=== PATIENT | male | born 1930 | race African-American/Black ===

== ENCOUNTER 2016-08-31 10:09 | Inpatient (IN) | payer OTHER ==
[2016-08-31] VITALS (24 sets, daily range): BP systolic 35–144; BP diastolic 25–83
[~2016-08-31] VITALS: Ht 172.7 cm; Wt 79.4 kg
--- NOTE | ~2016-08-31 | EKG ---
[address] [place] [address] ELECTROCARDIOGRAM REPORT Name: JD ABAD Room #: 251-P [facility] IN M.R.#: [id number] Admission: 08/31/16 Attend Phys: Sharan Holbrook MD Discharge: 08/31/16 Date of : 32 Report #: [id number] THIS REPORT FOR: //name// [facility] Test Date: 2016-08-31 Test Time: 14:11:10 Pat Name: JD ABAD Department: Room: 251 Gender: M National Account Executive: Timothy PIERRE : 1930 Requested By: Isaiah Helms Order Number: [id number] MD: Ubaldo Guerra Measurements Intervals [place] Rate: 69 P: 55 NC: 185 QRS: -70 QRSD: 184 T: 79 QT: 436 QTc: 467 Interpretive Statements Sinus rhythm Right bundle branch block Inferior infarct, old Compared to ECG 08/31/2016 11:03:36 No significant changes Electronically Signed On 09-02-2016 14:02:56 PATTERN CLERK by Ubaldo Guerra [email or web address] <ELECTRONICALLY SIGNED> By: Ubaldo Guerra MD, [facility] 09/02/16 1402 1411 141 Ubaldo Guerra MD, [facility] /EPI
--- NOTE | ~2016-08-31 | HC ---
[facility] [place] [address] CONSULTATION Name: JD ABAD Room #: 251-P [facility] IN M.R.#: [id number] Admission: 08/31/16 Attend Phys: Sharan Holbrook MD Discharge: 08/31/16 Date of : 32 Report #: [id number] THIS REPORT FOR: //name// CC: Sharan Wilson PRIMARY CARE PHYSICIAN: Luis Wilson M.D. REFERRAL PHYSICIAN: Dr. Sharan Holbrook. REASON FOR REFERRAL: Acute respiratory failure. HISTORY OF PRESENT ILLNESS: The patient is an 86-year-old -[place] male who was brought to the emergency room with unresponsive state. A pulmonary critical care consultation was requested. The patient has had a relative decline in his health over the past 6 months. He has been hospitalized at least on 4 occasions since April of this year. His last hospital stay was in 07/2016 for a suspected urinary tract infection and sepsis. It appears to have started from when he was diagnosed with a stroke about a year ago. According to the family, his health has been declining for the last 6 months with progressive weakness. For the past few weeks, he has been bedridden. In fact, he has also developed a decubitus ulcer. The patient has heart disease along with ischemic cardiomyopathy, diabetes mellitus type 2, hypotension and chronic kidney disease. When he was seen in the emergency room, he was found to be hypoxic and hypotensive. The patient coded at least on 3 occasions in the ER and then 2 more times in the ICU. Each time he would get hypotensive and bradycardic. He responds to epinephrine. At present, he is on multiple vasopressors. Despite this, his blood pressure would keep trending downward requiring epinephrine boluses. He is profoundly hypoxic with a PaO2 of only 59 on FiO2 of 100%. He has also been developing progressive acidosis. He is also anuric at this time. PAST MEDICAL HISTORY: As mentioned above, coronary artery disease with ischemic cardiomyopathy, past history of myocardial infarction, history of CVA with progressive weakness and debility, diabetes mellitus type 2, hypertension, chronic kidney disease, decubitus ulcer involving his coccyx and his feet along with Alzheimer dementia. The patient also has an apparent history of sleep apnea, unclear whether he has been on CPAP, peripheral vascular disease. ALLERGIES: PENICILLIN, WHICH CAUSES SWELLING. [facility] [address] [place] [address] CONSULTATION Name: JD ABAD Room #: 251-P [facility] IN M.R.#: [id number] Admission: 08/31/16 Attend Phys: Sharan Holbrook MD Discharge: 08/31/16 Date of : 32 Report #: [id number] HOME MEDICATIONS: Include Zyrtec, Flonase, linagliptin, amiodarone, amlodipine, diltiazem and Flomax. FAMILY HISTORY: Noncontributory. SOCIAL HISTORY: The patient is and lives with his . There is no history of tobacco or alcohol use. REVIEW OF SYSTEMS: As mentioned above, the patient has been rather sedentary for the past 6 months with progressive weakness and debility. PHYSICAL EXAMINATION: GENERAL: Obtunded. VITAL SIGNS: Temperature has been very labile with blood pressure as low as 40 mmHg systolic, currently it is 100 mmHg systolic; pulse is 85, respiratory rate is 14, saturation 90%. HEENT: Normocephalic, atraumatic. He is orally intubated. NECK: Supple, without lymphadenopathy or thyromegaly. CHEST: Breath sounds are coarse bilaterally without rales or wheezes. CARDIOVASCULAR: Normal S1, S2. No murmurs or gallop. There is no JVD. There is no carotid bruit. Pulses are markedly reduced bilaterally. ABDOMEN: Soft, nontender, no organomegaly or masses felt. EXTREMITIES: No cyanosis or clubbing, it is cool to touch. MUSCULOSKELETAL: Remarkable for moderate muscle atrophy. LABORATORY DATA: Chest x-ray shows dense right lower lobe infiltrates. CT of the head was unremarkable for any acute intracranial hemorrhage or processes. Echocardiogram revealed ejection fraction of 30-35%, akinesis involving the apical septal, apical lateral and apical myocardium, no overt valvular heart disease, pulmonary pressure measured 36 mmHg. Sodium 156, potassium 5.2, chloride of 116, CO2 is 22, BUN is 102, creatinine is 10.0, liver function test is moderately abnormal. WBC is 12,800; hemoglobin 7.7. Albumin of 1.5, calcium of 7.7. Arterial blood gas revealed pH 7.21, pCO2 of 43, pO2 of 71 on FiO2 100%. IMPRESSION: 1. Cardiopulmonary arrest in this 86-year-old -[place] male due to presumed profound septic shock due to aspiration pneumonia, extracellular volume depletion. 2. Aspiration pneumonia. 3. Acute kidney injury/chronic kidney disease. 4. Worsening metabolic acidosis. 5. Shock liver. 6. Profound protein calorie malnutrition. 7. Encephalopathy, probable hypoxic brain injury. [facility] [address] [place] [address] CONSULTATION Name: JD ABAD Room #: 251-P [facility] IN Marlena.#: [id number] Admission: 08/31/16 Attend Phys: Sharan Holbrook MD Discharge: 08/31/16 Date of : 32 Report #: [id number] 8. Coronary artery disease with ischemic cardiomyopathy. 9. Diabetes mellitus type 2. 10. Hypertension. 11. Progressive debility and weakness following a cerebrovascular accident over the past year. RECOMMENDATION AND DISCUSSION: The patient has coded at least 6 times since 10:00 this morning. He becomes progressively hypotensive. He is also developing worsening acidosis. He is anuric. He was profoundly hypoxic on FiO2 of 100%. Overall, prognosis is very grim. There is no meaningful hope for recovery. Further care is felt to be futile. I had a long discussion with the patient's family including , daughter and son-in-law. They voice understanding. After some contemplation, they have decided to be DNR. We will continue current treatment, but would not add any additional therapy including cardioversion, additional medication or blood products, etc. Should the patient's condition deteriorate, then we will make him comfort care. The family voices understanding and is in agreement. Thank you for this consultation. <ELECTRONICALLY SIGNED> By: Isaiah Helms MD 09/07/16 1634 1629 0041 Isaiah Helms MD /nt
--- NOTE | ~2016-08-31 | P ---
[facility] [place] [address] PROCEDURE REPORT Name: JD ABAD Room #: 251-P [facility] IN M.R.#: [id number] Admission: 08/31/16 Attend Phys: Sharan Holbrook MD Discharge: 08/31/16 Date of : 32 Report #: [id number] THIS REPORT FOR: //name// CC: Sharan Wilson DATE OF SERVICE: 08/31/2016 PROCEDURE: Right subclavian triple-lumen catheter insertion. INDICATION: Need for central venous access, ____ patient on multiple medications. PROCEDURE NOTATION: The patient was sedated on mechanical ventilator after cardiopulmonary arrest. I discussed with , who was at the bedside. They agreed for us to proceed; emergent procedure performed. A 2% chlorhexidine gluconate cleansed the surface of the right subclavian area using full barrier method including head gown, mask, gloves and full body eye sheet was performed. No topical lidocaine was instilled. Using the introducer needle, using an infraclavicular approach, the subclavian was accessed on the second attempt. J wire was initially not easily passed; however, with some turning of the bevel of the needle distally, the J wire was easily advanced into good position. Needle was removed. A small dermotomy was made followed by dilator over the J wire and then the dilator was removed and triple lumen was advanced over the J wire into good position using Seldinger technique. Sutured in place at 18 cm at the skin surface. Biopatch put in place and dressing put in place. All lines flushed and aspirated easily. Chest x-ray confirmed good positioning. No pneumothorax. <ELECTRONICALLY SIGNED> By: Derek Sanz MD 09/10/16 0903 1644 2353 Derek Sanz MD /nt
--- NOTE | ~2016-08-31 | EKG ---
[address] [address] ELECTROCARDIOGRAM REPORT Name: JD ABAD Room #: 251-P [facility] IN M.R.#: [id number] Admission: 08/31/16 Attend Phys: Sharan Holbrook MD Discharge: Date of : 32 Report #: [id number] THIS REPORT FOR: //name// [facility] ED Test Date: 2016-08-31 Test Time: 11:03:36 Pat Name: JD ABAD Department: Room: [facility] Gender: M Revenue Accounting Manager: Unruly CONTI : 1930 Requested By: Hilaroi William Order Number: [id number] MD: Ethan Marrero Measurements Intervals [place] Rate: 88 P: 48 UT: 153 QRS: -61 QRSD: 166 T: 62 QT: 471 QTc: 570 Interpretive Statements Sinus rhythm Right bundle branch block Compared to ECG 08/20/2016 06:58:51 Electronically Signed On 08-31-2016 14:20:25 HATCHERY ATTENDANT by Ethan Marrero [email or web address] <ELECTRONICALLY SIGNED> By: Ethan Marrero MD 08/31/16 1420 02 02 Ethan Marrero MD /ESAU
--- NOTE | ~2016-08-31 | 2DMMODE ---
[facility] [place] [address] 2 D/M-MODE ECHOCARDIOGRAM Name: JD ABAD Room #: 251-P [facility] IN M.R.#: [id number] Admission: 08/31/16 Attend Phys: Timothy Galarza Discharge: Date of : 32 Date of Service: 08/31/16 1439 Report #: [id number] THIS REPORT FOR: //name// Transthoracic Echocardiography Ordering physician: Isaiah Helms Referring physician: Isaiah Helms Steven E. Cloth Colorer: KATHRYN Jeff Indications/History: Limited echoduring codein ICU. BP: HR: Height: 68in Weight: 175lb Study data: M-mode, limited 2D, limited spectral Doppler, and color Doppler. Location: Bedside. STAT. Image quality was adequate. 2D measurements Normal Normal LVID ED 36-57 IVS ED 6-11 LVID ES 23-40 LVPW ED 6-11 LA volume index 16-28 AoRoot diam ED 21-37 LVOT diameter 18-23 Findings: Left ventricle: The cavity size was normal. Wall thickness was normal. Systolic function was moderately to severely reduced. The estimated ejection fraction was in the range of 30% to 35%. Regional wall motion abnormalities: Akinesis of the apical septal, apical lateral, and apical myocardium. Right ventricle: The cavity size was at the upper limits of normal. Systolic function was normal. Right atrium: The atrium was normal in size. Left atrium: The atrium was mildly dilated. Aortic valve: Structurally normal valve. Doppler: There was no stenosis. Mitral valve: Structurally normal valve. Doppler: There was no evidence for stenosis. Tricuspid valve: Structurally normal valve. Doppler: There was no evidence for stenosis. Mild regurgitation. [address] [address] 2 D/M-MODE ECHOCARDIOGRAM Name: JD ABAD Room #: 251-P [facility] IN M.R.#: [id number] Admission: 08/31/16 Attend Phys: Sharan PitoShania Romanoma Timothy Discharge: Date of : 32 Date of Service: 08/31/16 1439 Report #: [id number] Regurgitant peak velocity: 254.8cm/s. Peak RV-RA gradient: 26mm Hg (S). Pulmonic valve: Structurally normal valve. Doppler: There was no evidence for stenosis. Pericardium: There was no pericardial effusion. Aorta: Aortic root: The aortic root was normal in size. Pulmonary artery: Systolic pressure was estimated to be 36mm Hg. Systemic veins: Inferior vena cava: The vessel was normal in size; the respirophasic diameter changes were blunted (< 50%). Conclusions 1. Left ventricle: The cavity size was normal. Wall thickness was normal. Systolic function was moderately to severely reduced. The estimated ejection fraction was in the range of 30% to 35%. 2. Regional wall motion abnormality: Akinesis of the apical septal, apical lateral, and apical myocardium. 3. Aortic valve: Structurally normal valve. 4. Mitral valve: Structurally normal valve. 5. Tricuspid valve: Structurally normal valve. Mild regurgitation. 6. Pulmonary arteries: Systolic pressure was estimated to be 36mm Hg. <ELECTRONICALLY SIGNED> By: Sacha Farris MD 08/31/16 1536 1439 1536 Sacha Farris MD /alexandro
--- NOTE | ~2016-08-31 | HC ---
[facility] [place] [address] CONSULTATION Name: JD ABAD Room #: 251-P [facility] IN M.R.#: [id number] Admission: 08/31/16 Attend Phys: Sharan Holbrook MD Discharge: 08/31/16 Date of : 32 Report #: [id number] THIS REPORT FOR: //name// CC: Sharan Wilson DATE OF SERVICE: 08/31/2016 REASON FOR CONSULTATION: Shock with acute kidney injury. HISTORY OF PRESENT ILLNESS: This is an 86-year-old male who has been in and out of [facility] multiple times since April of this year. At that time, he suffered a CVA. We have seen him in consultation on multiple of these hospitalizations. He has been very weak since his stroke. He has had difficulty with eating and swallowing. He was just discharged to home 8 days ago. He has had multiple episodes of acute kidney injury with creatinine levels that have risen up to the range of 4-5. Each time with volume replacement, creatinine tends to get better back down to his baseline creatinine in the 1.5-2 range. Upon discharge on 08/23/2016, his creatinine level was 2.9. Upon presentation today, his creatinine is 10.4. I have had a chance to talk to his . She has been caring for him at home. She has a home health nurse who is coming in and helping her on a daily basis. The patient has had difficulty eating. She is feeding him pureed food, but he is still having problems swallowing that. Fluid intake has been minimal. Urine output has been minimal. Today, he was more hypoxemic and having trouble breathing. EMS was called, he was brought to the Emergency Room and has reportedly coded several times requiring resuscitation. He is seen at this time in the Intensive Care Unit. He has been intubated. He is on the ventilator. He has gotten 3 liters of saline IV. He is on 3 different pressors. He is unresponsive and unable to provide any history; additional history is through his . PAST MEDICAL HISTORY: He had a CVA in 04/2016 that resulted in some left hemiparesis. He has been doing poorly ever since that time. He has chronic kidney disease stage III or stage IV. He has had multiple episodes of acute kidney injury. He has had longstanding hypertension and diabetes. He has a history of coronary artery disease, previous NE, previous percutaneous coronary interventions. He has chronic dementia. Previously, he had some obstructive sleep apnea. MEDICATIONS: As provided by his include hydrocodone for pain, several different eye drops, meclizine 25 mg t.i.d., vitamin D3 1000 units daily, tamsulosin 0.4 mg daily, fluticasone inhaler, carvedilol 12.5 mg b.i.d., aspirin 81 mg daily, omeprazole 20 mg daily, simvastatin 40 mg daily, primidone 100 mg b.i.d., finasteride 5 mg daily, gabapentin 600 mg b.i.d., Tradjenta 5 mg daily, [address] [address] CONSULTATION Name: JD ABAD Room #: 251-P [facility] IN M.R.#: [id number] Admission: 08/31/16 Attend Phys: Sharan Holbrook MD Discharge: 08/31/16 Date of : 32 Report #: [id number] glipizide 5 mg b.i.d., amiodarone down to 200 mg once daily, diltiazem 240 mg daily and amlodipine 5 mg daily. ALLERGIES: PENICILLIN. FAMILY HISTORY: Noncontributory. SOCIAL HISTORY: The patient is . He and his live in [place]. It has been a difficult situation because in spite of medical recommendations that he be placed in a Care Center, the has refused do that and wanted to care for him at home, but this has resulted in recurring hospitalizations on a frequent basis recently. REVIEW OF SYSTEMS: The says that they have been trying to feed him pureed food. He still has some difficulty swallowing. Little intake of fluids. He has had some cough. She is unaware of fevers, chills or sweats. She says urine output has been reduced. She is unaware of vomiting, unaware of diarrhea. They have been providing basically total care for him. PHYSICAL EXAMINATION: GENERAL: Severely ill-appearing male seen in the Intensive Care Unit. VITAL SIGNS: Blood pressure about 60 systolic, heart rate is in the 80s. He is intubated. HEENT: Pupils are 3 mm on the left, 4 mm on the right, sluggish. Sclerae are nonicteric. CHEST: Shows markedly diminished breath sounds going to the right lung, generally coarse. HEART: Has distant heart tones. ABDOMEN: Soft, no bowel sounds, it is not distended. No organomegaly or are palpable. EXTREMITIES: Show diffuse severe atrophy and generally decreased skin turgor consistent with volume depletion. Chest x-ray is reviewed and shows a right lower lobe infiltrate with volume loss on the right lung. LABORATORY DATA: On admission to the Emergency Room; sodium 155, potassium 5.2, chloride 116, bicarbonate 22, BUN 102, creatinine 10.4, glucose 313, AST 106, ALT 35, calcium 8.6, total protein 6.2, albumin 1.9. Troponin 2.38. INR 1.3. White count 10.8, hemoglobin 8.6, hematocrit 26.1, platelets 138,000. Differential on the white count is 86 segs, 10 lymphs, 4 monos. Urinalysis not yet available. Blood gas; pH 7.22, pCO2 44, pO2 72. Lactate on that is 5.49. ASSESSMENT: 1. Shock post-codes. He has had multiple resuscitations. He is dramatically volume deplete. He is on multiple pressors. He needs extensive volume [facility] [address] [place] [address] CONSULTATION Name: JD ABAD Room #: 251-P [facility] IN M.R.#: [id number] Admission: 08/31/16 Attend Phys: Sharan Holbrook MD Discharge: 08/31/16 Date of : 32 Report #: [id number] resuscitation. We have ordered two additional liters at this time to run in stat. He will need further volume after that, we will continue the pressors as needed. 2. Respiratory failure requiring mechanical ventilation. 3. Acute kidney injury. This is on top of chronic kidney disease. With his creatinine of 2.5, 8 days ago and now his creatinine of 10, he has been having progressive renal failure ever since he was discharged to home. I am sure a large part of this was like a volume intake and this had been suspected based upon prior hospital notes during his recent hospitalizations. Again, this is contributing to his very poor renal perfusion. 4. Chronic kidney disease stage 4. 5. Hypertension, longstanding. Obviously not a problem at this point, but he has been on multiple antihypertensive medications, all of which may be contributing. 6. Hypernatremia. Again, he has been free water deficient with his poor oral intake. I am sure his sodium my go up more with his normal saline resuscitation and we will at some point need to switch him to hypotonic IV fluids. 7. Hyperkalemia, mild. This will correct with volume replacement. 8. Coronary artery disease, previous PCI. 9. Pneumonia, right lower lobe. Broad spectrum antibiotics. He has just been in the hospital multiple times, so we will need coverage for potential hospital-acquired pneumonia. 10. Cerebrovascular accident in April, this has left him very limited. Included in that, he has been on a pureed diet, but still not taking much. 11. Anemia, progressive. 12. I had a conversation with the patient's . The patient is critically ill and very unstable. He may not survive this episode. We will give him aggressive volume replacement. He will be getting mechanical ventilation, antibiotics, fluid resuscitation, pressors and intensive care. Obviously, the home situation is an untenable one. We are far from making decisions going forward until we see if he will stabilize with our aggressive care. <ELECTRONICALLY SIGNED> By: John Clifford MD 09/03/16 0738 1319 2139 John Clifford MD /nt
--- NOTE | ~2016-08-31 | DEA ---
[facility] [place] [address] SUMMARY Name: JD ABAD Room #: 251-P [facility] IN M.R.#: [id number] Admission: 08/31/16 Attend Phys: Sharan Holbrook MD Discharge: 08/31/16 Date of : 32 Report #: [id number] THIS REPORT FOR: //name// CC: Sharan Wilson DATE OF SERVICE: 08/31/2016 In briefly, this patient is an 86-year-old male who was brought in to the Emergency Room unresponsive. ER record reviewed. EMS received a call, his stating that the patient was not acting right and become unresponsive. They brought him in the ER, the patient was coded. ACLS protocols were used. The patient was intubated, started on the pressors and paralyzed and then, he at least coded twice in the ER and he had a sepsis pneumonia and basically, his septic shock, hypernatremia, acute renal failure, diabetic acidosis and he was transferred to the ICU. Pulmonary, Infectious Disease and all have been involved. The patient aggressively was resuscitated and treated. Overall, prognosis was poor. Finally, the family had decided to make him a DNR. The patient on the same day of admission later this evening. Please see the notes in the chart for further details. The last note for Dr. Schmidt was on 06:25 and the patient was pronounced at 06:25 thus according to the note. <ELECTRONICALLY SIGNED> By: Sharan Holbrook MD 09/12/16 1354 1311 1409 Sharan Holbrook MD /nt
[~2016-08-31 10:09] MED LIST: ANTIVERT25 MG PO; ASPIR 8181 MG PO; CARDIZEM CD240 MG PO; CARVEDILOL12.5 MG PO; CETIRIZINE HCL5 MG PO; COZAAR 50 MG TA50 M2 PO; DUONEB 2.5-0.5 M3 ML INH; FLOMAX0.4 MG PO; FLONASE 0.05%50 MCG NASAL; GLIPIZIDE 10 MG10 MG PO; HYDRALAZINE 2525 MG PO; HYDROCODONE-AP1 EAC6 PO; LASIX 20 MG TAB20 MG PO; LEVAQUIN 500 M500 M9 PO; LOSARTAN POTAS100 MG PO; MYRBETRIQ25 MG PO; MYSOLINE50 MG PO; NEURONTIN600 MG PO; NITROFURANTOIN100 MG PO; NORVASC5 MG PO; OMEPRAZOLE20 M1 PO; OTHER MISCELL; PACERONE 200 M200 M1 PO; PACERONE 200 M200 MG PO; PROSCAR 5MG TABL5 MG PO; SIMVASTATIN40 MG PO; TIMOLOL GL0.5 %/5 ML OP; TIMOLOL MA0.5 %/5 M2 OPHTHALMIC; TRADJENTA5 MG PO; TRAVATAN Z2.5 ML OPHTHALMIC; TRUSOPT5 ML OP; VITAMIN D1000 UNI1 PO
[2016-08-31 10:42] LABS: ABSOLUTE NEUTROPHILS 9.3 thou/uL (1.4-8.2); BASOPHILS 0.4 % (0.0-2.0); HEMATOCRIT 26.1 % (42.0-52.0); HEMOGLOBIN 8.6 gm/dL (14.0-18.0); MCHC 33.1 % (28.0-37.0); MCV 90.8 fL (80.0-100.0); MONOCYTES 3.9 % (1.0-8.0); POLYS 85.7 % (36.0-66.0); RBC 2.87 mil/uL (4.50-6.00); RDW 16.4 % (10.5-14.5); WBC 10.8 thou/uL (4.0-11.0)
[2016-08-31 10:44] LABS: MANUAL DIFF NO
[2016-08-31 10:48] LABS: CALCIUM 8.6 mg/dL (8.5-10.1); CREATININE 10.4 mg/dL (0.6-1.3); POTASSIUM 5.2 mmol/L (3.5-5.1)
[2016-08-31 10:58] LABS: ALBUMIN 1.9 g/dL (3.4-5.0); TOTAL BILIRUBIN 0.3 mg/dL (<0.1-1.0); TOTAL PROTEIN 6.2 g/dL (6.4-8.2)
[2016-08-31 10:59] LABS: INR 1.3; PROTIME 13.1 Seconds (9.3-11.4)
[2016-08-31 11:01] LABS: TROPONIN-I 2.38 ng/mL (<0.04-0.07)
[2016-08-31 11:21] LABS: PLATELET COUNT 138 thou/uL (150-400); PLATELET ESTIMATE SLIGHTLY DECREASED
[2016-08-31 11:22] LABS: ANISOCYTOSIS 1+; LARGE PLATELETS OCCASIONAL; OVALOCYTES FEW; POIKILOCYTOSIS SLIGHT
[2016-08-31 11:24] LABS: ABG SAMPLE TYPE ARTERIAL; BE(vivo) -9.9 mmol/L (-2 to +3); HCO3 17.3 mmol/L (22.0-26.0); O2(CT) 11.8 mL/dL (15.0-23.0); O2Hb 88.9 % (92.0-98.0); PCO2 43.7 mmHg (35.0-45.0); PO2 71.8 mmHg (80.0-100.0); sO2 91.2 % (92.0-98.0); tCO2 18.6 mmol/L (24.0-30.0)
[2016-08-31 11:25] LABS: LACTATE 5.49 mmol/L (0.5-2.0); STICK SITE R.BRACHIAL; TIDAL VOLUME 600 ml; pH 7.215 (7.360-7.450)
[2016-08-31 13:45] LABS: ABG SAMPLE TYPE ARTERIAL; BE(vivo) -11.8 mmol/L (-2 to +3); HCO3 13.8 mmol/L (22.0-26.0); LACTATE 7.06 mmol/L (0.5-2.0); O2(CT) 10.6 mL/dL (15.0-23.0); O2Hb 92.8 % (92.0-98.0); PCO2 30.4 mmHg (35.0-45.0); PO2 85.1 mmHg (80.0-100.0); STICK SITE LINE; pH 7.276 (7.360-7.450); sO2 95.4 % (92.0-98.0); tCO2 14.8 mmol/L (24.0-30.0)
[2016-08-31 13:46] LABS: TIDAL VOLUME 600 ml
[2016-08-31 14:11] LABS: ABG SAMPLE TYPE ARTERIAL; BE(vivo) -13.5 mmol/L (-2 to +3); HCO3 14.3 mmol/L (22.0-26.0); O2(CT) 7.5 mL/dL (15.0-23.0); PCO2 41.3 mmHg (35.0-45.0); tCO2 15.6 mmol/L (24.0-30.0)
[2016-08-31 14:12] LABS: LACTATE 8.94 mmol/L (0.5-2.0); O2Hb 62.5 % (92.0-98.0); PO2 43.8 mmHg (80.0-100.0); STICK SITE LINE; pH 7.158 (7.360-7.450)
[2016-08-31 14:28] LABS: CALCIUM 7.7 mg/dL (8.5-10.1)
[2016-08-31 14:31] LABS: ABG SAMPLE TYPE ARTERIAL; BE(vivo) -11.9 mmol/L (-2 to +3); HCO3 14.7 mmol/L (22.0-26.0); LACTATE 9.14 mmol/L (0.5-2.0); O2(CT) 9.1 mL/dL (15.0-23.0); PO2 59.9 mmHg (80.0-100.0); STICK SITE LINE; TIDAL VOLUME 600 ml; pH 7.229 (7.360-7.450); sO2 86.4 % (92.0-98.0); tCO2 15.8 mmol/L (24.0-30.0)
[2016-08-31 14:31] LABS: AMYLASE 60 U/L (25-115)
[2016-08-31 14:33] LABS: APTT 49.2 Seconds (24.5-32.8); CREATININE 8.9 mg/dL (0.6-1.3)
[2016-08-31 14:34] LABS: POTASSIUM 6.5 mmol/L (3.5-5.1)
[2016-08-31 14:44] LABS: HEMATOCRIT 24.7 % (42.0-52.0); HEMOGLOBIN 7.7 gm/dL (14.0-18.0); MCH 29.2 pg (26.0-34.0); MCHC 31.1 % (28.0-37.0); MCV 93.7 fL (80.0-100.0); RBC 2.64 mil/uL (4.50-6.00); RDW 17.5 % (10.5-14.5); WBC 12.8 thou/uL (4.0-11.0)
[2016-08-31 14:51] LABS: ABG SAMPLE TYPE VENOUS; HCO3 12.9 mmol/L (22.0-26.0); LACTATE 6.74 mmol/L (0.5-2.0); O2Hb VENOUS 57.5 (65.0-85.0); PCO2 VENOUS 34.4 mmHg (41.0-51.0); PO2 VENOUS 39.3 mmHg (35.0-45.0); STICK SITE LINE; sO2 VENOUS 62.5 % (65.0-85.0); tCO2 13.9 mmol/L (24.0-30.0)
[2016-08-31 14:52] LABS: INR 1.5
[2016-08-31 15:01] LABS: ALBUMIN 1.5 g/dL (3.4-5.0); DIRECT BILIRUBIN 0.4 mg/dL (<0.1-0.3); TOTAL BILIRUBIN 0.8 mg/dL (<0.1-1.0); TOTAL PROTEIN 5.1 g/dL (6.4-8.2)
[2016-08-31 16:08] LABS: ABG SAMPLE TYPE VENOUS; BE(vivo) -22.5 mmol/L (-2 to +3); HCO3 9.3 mmol/L (22.0-26.0); O2(CT) 4.8 mL/dL (15.0-23.0); O2Hb VENOUS 47.9 (65.0-85.0); PCO2 VENOUS 53.2 mmHg (41.0-51.0); PO2 VENOUS 44.6 mmHg (35.0-45.0); STICK SITE LINE; sO2 VENOUS 48.6 % (65.0-85.0)
[2016-08-31 16:22] LABS: ABG SAMPLE TYPE ARTERIAL; BE(vivo) -15.6 mmol/L (-2 to +3); HCO3 11.7 mmol/L (22.0-26.0); O2Hb 85.3 % (92.0-98.0); PCO2 33.4 mmHg (35.0-45.0); PO2 65.7 mmHg (80.0-100.0); sO2 87.5 % (92.0-98.0); tCO2 12.8 mmol/L (24.0-30.0)
[2016-08-31 16:23] LABS: LACTATE 10.72 mmol/L (0.5-2.0); STICK SITE LINE; TIDAL VOLUME 600 ml; pH 7.164 (7.360-7.450)
== END 2016-08-31 18:25 | DRG 871 ==
LOC: ER 10:09 → EROBS 11:19 → ICU 12:21
PROVIDERS: Emergency Medicine; Family Medicine; Internal Medicine Nephrology; Internal Medicine Pulmonary Disease
PROC: 05H533Z Insertion of Infusion Device into Right Subclavian Vein, Percutaneous Approach (ICD-10-PCS; principal; 2016-08-31)
PROC: 5A1935Z Respiratory Ventilation, Less than 24 Consecutive Hours (ICD-10-PCS; 2016-08-31)
DX: A41.9 Sepsis, unspecified organism (principal); R65.21 Severe sepsis with septic shock; I63.9 Cerebral infarction, unspecified; J69.0 Pneumonitis due to inhalation of food and vomit; G93.40 Encephalopathy, unspecified; K72.00 Acute and subacute hepatic failure without coma; N18.4 Chronic kidney disease, stage 4 (severe); N17.9 Acute kidney failure, unspecified; E87.0 Hyperosmolality and hypernatremia; E87.2 Acidosis; I46.9 Cardiac arrest, cause unspecified; I12.9 Hypertensive chronic kidney disease with stage 1 through stage 4 chronic kidney disease, or unspecified chronic kidney disease; H40.9 Unspecified glaucoma; E78.5 Hyperlipidemia, unspecified; I25.10 Atherosclerotic heart disease of native coronary artery without angina pectoris; N40.0 Benign prostatic hyperplasia without lower urinary tract symptoms; E11.22 Type 2 diabetes mellitus with diabetic chronic kidney disease; G30.9 Alzheimer's disease, unspecified; F02.80 Dementia in other diseases classified elsewhere, unspecified severity, without behavioral disturbance, psychotic disturbance, mood disturbance, and anxiety; G47.33 Obstructive sleep apnea (adult) (pediatric); E87.5 Hyperkalemia; D64.9 Anemia, unspecified; I25.5 Ischemic cardiomyopathy; E11.51 Type 2 diabetes mellitus with diabetic peripheral angiopathy without gangrene; Z79.899 Other long term (current) drug therapy; Z79.82 Long term (current) use of aspirin; Z88.0 Allergy status to penicillin; I25.2 Old myocardial infarction; Z66 Do not resuscitate; Z51.5 Encounter for palliative care
CPT/HCPCS: 10078; 85026; 85030